=== PATIENT | female | born 1975 | race Caucasian/White ===

== ENCOUNTER 2020-11-18 16:54 | Emergency (ER) | payer MEDICAID ==
[~2020-11-18] VITALS: Ht 154.9 cm; Wt 79.5 kg
[2020-11-18] MEDS ORDERED: IBUP-2759 PO (17:02)
[2020-11-18] MEDS ORDERED: ACETAMINOPHEN 500 MG TABLET PO ONE (20:30)
[2020-11-18 21:09] VITALS: BP 143/57
== END 2020-11-18 21:10 | disposition home or self-care (01) ==
LOC: EMS 17:13
DX: M65.4 Radial styloid tenosynovitis [de Quervain] (principal); Z90.49 Acquired absence of other specified parts of digestive tract; Z79.899 Other long term (current) drug therapy
CPT/HCPCS: 99283